=== PATIENT | male | born 1965 | race Two or more races ===

== ENCOUNTER → 2024-08-13 | Outpatient (CLI) | payer BC, SELFPAY ==
[2024-08-13 09:27] LABS: Alanine Aminotransferase 18 U/L (10-49); Albumin, Serum 4.4 gm/dL (3.5-5.0); Albumin/Globulin Ratio 2.1 (1.2-2.2); Alkaline Phosphatase 111 U/L (46-116); Anion Gap 9 (7-16); Aspartate Amino Transferase 20 U/L (0-34); BUN/Creatinine Ratio 14 Ratio (12-20); Bilirubin,Total 0.4 mg/dL (0.3-1.2); Blood Urea Nitrogen 30 mg/dL (9-23); Calcium 9.4 mg/dL (8.3-10.6); Calcium (Corrected) 9.4 mg/dL (8.5-10.1); Carbon Dioxide 23.4 mMol/L (20.0-31.0); Chloride 109 mMol/L (98-107); Creatinine (Component) 2.2 mg/dL (0.6-1.3); Globulin 2.1 gm/dL (2.3-3.5); Glucose 106 mg/dL (74-106); Osmolality,Calculated 287 (275-295); Potassium 4.7 mMol/L (3.4-5.1); Sodium 141 mMol/L (136-145); Total Protein 6.5 gm/dL (5.7-8.2); eGFR 34 See Note
== END | disposition home or self-care (01) ==
PROVIDERS: PCP Internal Medicine; Referring Provider Internal Medicine; Visit Provider Internal Medicine
DX: Q61.2 Polycystic kidney, adult type (principal)
CPT/HCPCS: 36415; 80053